=== PATIENT | male | born 1960 | race Caucasian/White ===

== ENCOUNTER 2020-07-17 12:00 | Outpatient (RCR) | payer OTHER, SELFPAY ==
--- NOTE | 2020-06-06 07:59 | HP.OTEVAL_ITS ---
Patient's Visit Information EZEKIEL MENDIETA is a 60 year old M, referred to Occupational Therapy by MILLIE ANTONY, with a diagnosis of MS weakness. Date of Evaluation: 06/04/20 Occupational Therapist: Rebecca Rosa, JEFF/Hans, CHT - Subjective This 60 year old male was seen for OT robert with dx of MS- pt states he feels he has had difficulty with leg strength- and left hand FMS. pt states the last year he has been stuggling with this weakness or limited motion of hands- dr has changed medications but no sig. changes. pt would like to try therapy to see what he can do to improve his function and ind. with ALDs and IADL.s Pt state he is ind. with bathing and dressing- pt has grab bars in shower to assist him with his balance- pt does not work states he stopped playing a guittar about three years ago. pt states he does try to golf, read and play phone games. - ADLs Eating: Use silverware Grooming: Trim nails Comments: difficult Comments: pt has rubber gripper to open jars- large handle Household: Dust, Laundry Yard: Mow lawn Comments: push mower-. pt can only mow for 15 min which use to take him an hour and a half - Pain bilateral hands 4 Pain Intensity Range: 4, 5 - ROM ROM Comments: pt demo bilateral UB ROM WNL - Strength Shoulder: right 4/5 left 4-/5 Elbow: right 4/5 left 4-/5 Camera Operator: right 90# left 45# Lateral Pinch: right 28# left 20# Tripod Pinch: right 22# left 10# Tip-to-Tip Pinch: right 10# left 10# - Nine Hole Peg Right: 22.14 Left: 27.47 - In-Hand Manipulation Finger to Palm Translation: Normal - Right, Mild - Left Palm to Finger Translation: Normal - Right, Mild - Left Shift: Normal - Right, Mild - Left Rotation: Mild - Left - Quick DASH-Disab of Arm,Shoulder& Hand Quick DASH Score: 31.8175 - Goals Goal:: pt will demo a increase in left leak operator paraffin plant strength by 15# to increase pts ind.iwth ADLs and IADls by d/c. pt will demo a increase in BUE MMT by 1/2 mmt to UE to increase pts ind. with ADLs and IADLs by d/c Goal:: pt will report inrease understanding of engergy conservation awilda. to decrease muscle stress with ADls by d/c Goal:: pt will demo the ability to form letters of name, sentences with use of ad. eq. or compensitory awilda. to increase pts ine. with wrting task by d/c - Rehabilitation General Assessment: pt demo with weakness and decrease coordination with bilateral hand tasks for ADls and IADls - pt would benefit from skilled OT services 2x week for 4 weeks to increase pts functional strength and IND with ADLs and IADls. Rehabilitation Potential: Good - Anticipated Interventions A/AAROM/PROM, Strengthening, Fine Motor Coord/Skip, Neuro Reeducation, ADL Training, Education re assistive Equipment - Visit Plan Frequency: 2x /Week Duration: 6 Weeks TEXT: Thank you for the opportunity to evaluate your patient. For Medicare and Medicare HMO plans, please review the plan of care and approve it. It will need to be FAXED BACK to us at [phone] for Medicare purposes. Please let me know if there are questions or concerns regarding this plan of care. Physician Signature: Date:
--- NOTE | 2020-06-09 09:39 | HP.PTEVAL ---
Patient's Visit Information EZEKIEL MENDIETA is a 60 year old M referred to Physical Therapy by MILLIE ANTONY with a diagnosis of MS. Date of Evaluation: 06/06/20 Physical Therapist: Tony Ballard DPT - Visit Plan Frequency: 2x /Week Duration: 4 Weeks Plan: Start with BLE strengthening, cardiovascular exercises. Progress gym exercises as tolerated. - Subjective Pt. is here today for his initial evaluation with diagnosis of MS. Pt. reports having MS for a few years, but feels like he has become weaker this year. He reports doing less since COVID and would like to get back to exercising to reduce risk for further weakening. Pt. reports having a constant pain in BLEs, unchanging and not new. Pt. reports having increased difficulty with mowing his lawn due to fatigue. Pt. is hopeful to get back to all recreational and exercises without limitations. - Pain B LEs Pain Intensity (Out of 10): 4 Pain Intensity Range: 2, 6 - Objective POSTURE: Pt. has good posture in stance. Equal wt. shift. Slight anterior pelvic tilt. PALPATION: Pt. has increase in symptoms with palpation of BLEs. NEURO: Pt. has normal sensation to light and sharp touch. Pt. has normal DTR of BLEs. Pt. is able to rise on heels and toes without issues. ROM: Pt. has good ROM of BLEs including knees, hips. Pt. does have tight HS and hip flexors bilaterally. Lumbar spine: min loss with flexion, and extension, no increase in symptoms. MMT: RLE: ankle 4+/5 throughout; knee 4+/5 throughout; hip- flexion 4/5, abd 4/5, ext 4/5. LLE: ankle 4/5 throughout; knee 4/5 throughout; hip- flexion 4/5, abd 4-/5, ext 4/5. Pt. does have cogwheel effect with LLE testing. GAIT: Pt. has good gait pattern no LOB, no AD. Pt. completed 6 min walk test with 1337ft. Fatigue, but patient could have went further. STAIRS: No issues with 1 HR. - Goals Goal 1:: LTG: Pt. to be I with gym exercises. Goal Time Frame: 4-6 Weeks Goal 2:: STG: Pt. to have increased HS and hip flexor length by 25%. Goal Time Frame: 2-4 Weeks Goal 3:: LTG: pt. to have increased BLE strength by 1/2 grade of all effected musculature. Goal Time Frame: 4-6 Weeks Goal 4:: LTG: Pt. completed 6 min walk test with 1700+ feet. Goal Time Frame: 4-6 Weeks - Rehabilitation Potential Physical Therapy Diagnosis: Pt. has signs and symptoms consistent with MS. He has marked weakness in BLEs, L worse than R. Pt. did well with gait, but does quickly fatigue. He would benefit from PT to increase BLE strength and cardiovascular fitness in order to complete all daily activities without limitations, progressing program as able. Rehabilitation Potential: Excellent - Anticipated Interventions Patient/Client Instruction: Educate patient on: Condition, Plan of Care, Risk Factors, Benefits of Fitness Program For the Purpose of:: To facilitate caregiver knowledge, To improve self management, To prevent re-injury, To improve ability to perform tasks related to life management, To improve tolerance to ADL's Therapeutic Exercise to Include: Strength training, Postural training, Flexibilty training, Gait and locomotor training, Passive ROM, Active ROM For the Purpose of:: To decrease pain, To decrease swelling/inflammation, To increase ROM, To improve nutrient delivery to tissue, To increase oxygenation perfusion, To improve muscle performance and motor function, To improve gait and locomotor functions, To improve health of tissue, To decrease soft tissue restriction, To increase flexibility/ROM Thank you for the opportunity to evaluate your patient. For Medicare and Medicare HMO plans, please review the plan of care and approve it. It will need to be FAXED BACK to us at [phone] for Medicare purposes. For Medicare only, by signing this I certify the plan of care. Please let me know if there are questions or concerns regarding this plan of care. Physician Signature: Date:
--- NOTE | 2020-07-08 10:58 | HP.OTDCSUM ---
It has been my pleasure to treat EZEKIEL MENDIETA under orders from MILLIE ANTONY, for the diagnosis of MS weakness for a total of 9 visit(s). Please see the following information for a summary of their discharge status. % Improvement: 80 Objective/Function: left loom fixer supervisor strength increased from 45# to 75#-. left lateral pinch 18# a decrease from 20#. left tripod pinch 11# increase from 10#. pt has made good gains with his left loom fixer supervisor strength-. pt demo a decrease in 9-hole peg time indicating a increase in left hand fine motor skills. from 27.47 to a 25.39 Patient Goals: Regain Strength, Decrease Pain, Use Hand/Wrist/Arm Normally Again Goal:: pt will demo a increase in left loom fixer supervisor strength by 15# to increase pts ind.iwth ADLs and IADls by d/c. pt will demo a increase in BUE MMT by 1/2 mmt to UE to increase pts ind. with ADLs and IADLs by d/c Goal:: pt will report inrease understanding of engergy conservation awilda. to decrease muscle stress with ADls by d/c Goal:: pt will demo the ability to form letters of name, sentences with use of ad. eq. or compensitory awilda. to increase pts ine. with wrting task by d/c Goal:100% adherence to protocol: Yes Plan: D/C Discharge Comments: pt has done well with OT and made gains with his general strength, endurance and FMS. Pt reports he is ARELIS with ADls and IADS at this time. pt reports and demo understanding of his HEP and energy conservation awilda. pt to cont with HEP and agrees to D/C If there are questions or concerns regarding this patient's occupational therapy, please fell free to call me at [phone]. Thank you for the referral of this patient. Sincerely, Rebecca Rosa, OTR/L, CHT
--- NOTE | 2020-07-17 12:52 | HP.PTREVAL ---
MILLIE ANTONY, It has been my pleasure to treat EZEKIEL MENDIETA over the last 12 visits for MS. Please see the progress note below for an update on the physical therapy plan of care! Subjective: Pt. reports no new symptoms. Pt. report B leg and arm pain ~3/10 my normal soreness. Pt. being better overall, 65%, but is still having difficulty with walking due to fatigue. my legs just start to get really tired. Objective/Function: Pt. reports everyday things are getting easier, but is still having trouble walking longer distances. He reports being able to walking ~1/2 mile but is pretty fatigued afterwards. 6MWT 1520ft. no pain, but did notice increased fatigue. MMT: RLE- ankle DF 38#, knee- ext 43#, flexion 31#; hip- flexion 21#, abd 18#. LLE- ankle- DF 22#, knee- ext 39#, flexion 22#; hip- flexion 18#, abd 17#. Pt. jacobsen improved B HS length to 50deg bilaterally. Pt. is progressing with endurance and BLE strength. He still has marked weakness on his L side in comparison to his R side; but has overall improved. Pt. is walking further as well. Plan Plan: Pt. plans to complete exercises at home including home cycling, elliptical, core/BLE strenghtening. I talked to him about progressing walking with goal of walking upto 1 mile. Pt. consents. Pt is to trial exercise at home. If unable to complete he is able to return to PT and we have re assess him. If I do not hear from him by the end of the year I will DC back to physician. Goals Goal 1:: LTG: Pt. to be I with gym exercises. Goal Time Frame: 4-6 Weeks Goal Progress: Goal Met Goal 2:: STG: Pt. to have increased HS and hip flexor length by 25%. Goal Time Frame: 2-4 Weeks Goal Progress: Goal Met Goal 3:: LTG: pt. to have increased BLE strength by 1/2 grade of all effected musculature. Goal Time Frame: 4-6 Weeks Goal Progress: Progressing Goal 4:: LTG: Pt. completed 6 min walk test with 1700+ feet. Goal Time Frame: 4-6 Weeks Goal Progress: Progressing Anticipated Interventions Patient/Client Instruction: Educate patient on: Condition, Plan of Care, Risk Factors, Benefits of Fitness Program For the Purpose of:: To facilitate caregiver knowledge, To improve self management, To prevent re-injury, To improve ability to perform tasks related to life management, To improve tolerance to ADL's Therapeutic Exercise to Include: Strength training, Postural training, Flexibilty training, Gait and locomotor training, Passive ROM, Active ROM For the Purpose of:: To decrease pain, To decrease swelling/inflammation, To increase ROM, To improve nutrient delivery to tissue, To increase oxygenation perfusion, To improve muscle performance and motor function, To improve gait and locomotor functions, To improve health of tissue, To decrease soft tissue restriction, To increase flexibility/ROM Please do not hesitate to contact me at [phone] by phone or if you have questions or concerns regarding this new plan of care! Sincerely, TERRY MarquezT
== END 2020-07-17 19:00 | disposition home or self-care (01) ==
LOC: PT 12:00
PROVIDERS: PCP Internal Medicine
DX: G35 Multiple sclerosis (principal); R25.2 Cramp and spasm; R27.9 Unspecified lack of coordination; R26.9 Unspecified abnormalities of gait and mobility; Z79.899 Other long term (current) drug therapy
CPT/HCPCS: 97110; 97161; 97164; 97166; 97530